=== PATIENT | male | born 1950 | race Caucasian/White ===

== ENCOUNTER 2016-07-27 15:34 | Emergency (ER) | payer MEDICARE, OTHER ==
[2016-07-27 16:30] LABS: Hematocrit 34.7 % (42.0-52.0); Hemoglobin 12.2 gm/dL (13.5-18.0); Mean Cell Volume 93.8 fl (78-100); Mean Corpuscular Hgb Conc 35.2 g/dl (32-36); Mean Platelet Volume 9.1 fl (6.0-9.5); Neutrophil # 6.1 K/mm3 (1.3-6.0); Platelet Count 284 K/mm3 (150-450); Red Cell Distribution Width 13.3 % (11.5-14.0); White Blood Count 9.5 K/mm3 (4.0-10.5)
[2016-07-27 16:40] LABS: Prothrombin Time (Patient) 14.1 Seconds (9.4-11.4)
[2016-07-27] MEDS ORDERED: NORMAL SALINE 1,000 ML IV ONE (16:40)
[2016-07-27 16:41] LABS: INR 1.36 INR (0.90-1.10); Partial Thrombolplastin Time 30.3 Seconds (24-32)
[2016-07-27 16:42] LABS: Albumin * 3.8 gm/dl (3.4-5.0); Anion Gap 14.4 mmol/L (6.8-13.8); BUN/Creatinine Ratio 21.2 (9.0-21.6); Bilirubin, Total 0.2 mg/dL (0.0-1.1); Ca. Corrected For Albumin 8.9 mg/dL (8.4-10.2); Calcium * 9.1 mg/dL (7.9-10.9); Carbon Dioxide 26.4 mmol/L (24-32.6); Potassium 3.8 mmol/L (3.4-4.6); Total Protein 7.4 gm/dL (6.2-8.2)
--- OUTSIDE RECORDS SUMMARY | 2016-07-27 17:25 | XMS REPORT | Continuity of Care Document ---
:1950 Author Organization [facility] [place] [address] Care Team Providers Name Role Phone Unavailable Primary Care Provider Unavailable Source Comments This disclosure is being made pursuant to the [employer] program and maynot contain all information available regarding this patient.[facility] Active Allergies and Adverse Reactions Not on File Current Medications Be aware that medications may not be up to date as of this document. Alwaysverify current medications with the patient. Not on file Active Problems Not on file Social History Tobacco Use Types Packs/Day Years Used Date Never Assessed Plan of Care Health Maintenance Due Date Last Done Comments Retired-Pertussis Vaccine Adult 1969 Retired-Tetanus Vaccine Adult 1969 Colonoscopy 2000 Well Adult Visit 2000 Zoster Vaccine 60+ 2010 Retired-INFLUENZA VACCINE 02/15/2015 Results from Last 3 Months Not on file
--- OUTSIDE RECORDS SUMMARY | 2016-07-27 17:26 | XMS REPORT | Continuity of Care Document ---
:1950 Author Organization [facility] ([facility]) Address [address] [place] [address] Phone [phone] Care Team Providers Name Role Phone PearlKamar aiken Primary Care Provider [phone] Source Comments This disclosure is being made pursuant to the Care Everywhere program, applicable federal and state laws, and may not contain all informaitonavailable regarding this patient.[facility] ([facility]) Active Allergies and Adverse Reactions No Known Allergies Current Medications Prescription Sig. Disp. Refills Start End Date Status Date pravastatin 10 mg Take 10 mg by mouth Active tablet every evening. furosemide 40 mg tablet Take 20 mg by mouth Active daily lisinopril 2.5 mg Take 2.5 mg by Active tablet mouth daily. carvedilol 3.125 mg Take 3.125 mg by Active tablet mouth 2 times daily with meals. warfarin 3 mg tablet Take 3 mg by mouth Active daily. spironolactone 25 mg Take 12.5 mg by Active tablet mouth daily aspirin 81 mg EC tablet Take 81 mg by mouth Active daily. TAMSULOSIN HCL (FLOMAX Take by mouth daily Active PO) DULoxetine (CYMBALTA) Take 60 mg by mouth Active 60 mg capsule daily. hydroxychloroquine 200 Take 2 Tabs by 180 Tab 3 Active mg tablet mouth daily. 4 Indications: RHEUMATOID ARTHRITIS CLOPIDOGREL 75 mg Take 75 mg by mouth 4 Active tablet daily 5 folic acid 1 mg tablet Take 1 Tab (1 mg 90 Tab 3 Active total) by mouth 5 daily methotrexate 25 mg/mL Inject 1 mL (25 mg 12 mL 1 Active injection total) 5 subcutaneously every week tuberculin syringe w/ Inject 25 Syringe 1 Active needle 1 mL 27 g x 1/2" subcutaneously 5 every week Active Problems Problem Noted Date HTN (hypertension) 11/15/2013 CAD (coronary artery disease) 11/15/2013 S/P CABG (coronary artery bypass graft) 11/15/2013 Secondary osteoarthritis 02/22/2013 Encounter for long-term (current) use of other medications 04/20/2009 Other physical therapy 2008 Pain in limb 2008 Bunion 09/20/2008 Pain in joint, ankle and foot 09/16/2008 Pain in joint, forearm 07/06/2008 Unspecified polyarthropathy or polyarthritis, site unspecified 07/01/2008 Rheumatoid arthritis(714.0) 03/03/2008 Overview: On methotrexate and hydroxychloroquine. Sulfasalazine prescribed in February 2013, discontinued for stomach upset. Immunizations Name Dates Previously Given Next Due Influenza, unspecified 04/14/2014,03/17/2013,03/31/2008 Pneumococcal, unspecified 03/03/2005 Social History Tobacco Use Types Packs/Day Years Used Date Current Every Day Smoker Cigarettes 0.25 33 Smokeless Tobacco: Never Used Comments:1/3 pack a day. Alcohol Use Drinks/Week oz/Week Comments Yes 1drink every 2 weeks. Last Filed Vital Signs Vital Sign Reading Time Taken Blood Pressure 112/76 11/19/2014 10:06 AM CDT Pulse 89 11/19/2014 10:06 AM CDT Temperature 36.7 C (98.1 F) 11/19/2014 10:06 AM CDT Respiratory Rate 16 07/20/2008 8:16 AM [employer] Height 1.702 m (5' 7") 11/19/2014 10:06 AM CDT Weight 69.854 kg (154 lb) 11/19/2014 10:06 AM CDT Body Mass Index 24.11 11/19/2014 10:06 AM CDT Oxygen Saturation 98% 07/20/2008 8:16 AM [employer] Plan of Care Health Maintenance Due Date Last Done Comments Hepatitis B Vaccine (1 of 3 - Primary 1950 Series) Tdap Vaccine 1961 Lipid Disorder Screening 1968 Td Vaccine 1968 Colonoscopy 09/29/2000 Prostate Cancer Screening 2000 Zoster Vaccine 2010 Pneumococcal Vaccine (1 of 2 - PCV13) 10/01/2015 Influenza Vaccine: Seasonal (#1) 01/16/2016 04/14/2014, 03/17/2013, 03/31/2008 HCV Screening Completed 09/11/2002 Results from Last 3 Months Not on file
[2016-07-27] MEDS ORDERED: PANTOPRAZOLE SODIUM 40 MG in NORMAL SALINE 100 ML IV ONE (17:28)
[2016-07-27 17:42] LABS: Urine Appearance Clear; Urine Bilirubin Negative (NEGATIVE); Urine Blood Negative /ul (NEGATIVE); Urine Color Yellow; Urine Ketone Negative (NEGATIVE); Urine Nitrite Negative (NEGATIVE); Urine Protein Negative (NEGATIVE); Urine Urobilinogen Normal (NORMAL); Urine pH 6.5 pH (5.0-7.0)
[2016-07-27 17:43] LABS: Urine Bacteria None Seen; Urine RBC None Seen /hpf (0-5); Urine WBC None Seen /hpf (0-5)
--- NOTE | 2016-07-27 18:04 | ERNOTE ---
GI Bleeding/Rectal Pain ER Date of Service: 07/27/16 Presenting Symptoms: dark/tarry stools Time Seen by Provider: 07/27/16 16:25 Source: patient, family Exam Limitations: no limitations Immunizations: IMMUNIZATION HX Immunizations Up to Date Yes History of Influenza Vaccine Yes Hx Pneumococcal Vaccination No Allergies/Adverse Reactions: Allergies No Known Allergies Allergy (Verified 07/27/16 15:51) Home Medications: HOME MEDICATIONS Carvedilol [Coreg] 3.125 mg PO BID 05/26/12 [Last Taken 07/28/15 06:30] Folic Acid 1 mg PO DAILY 05/26/12 [Last Taken Unknown] Lisinopril 2.5 mg PO DAILY 05/26/12 [Last Taken Unknown] Methotrexate Sodium [Methotrexate] 25 mg PO RAMSEY 05/26/12 [Last Taken 02/13/15] Pravastatin Sodium 10 mg PO HS 05/26/12 [Last Taken Unknown] Spironolactone [Aldactone] 12.5 mg PO DAILY #0 tablet 05/28/12 [Last Taken Unknown] Furosemide [Lasix] 20 mg PO DAILY 06/11/13 [Last Taken Unknown] Clopidogrel Bisulfate [Plavix] 75 mg PO DAILY 07/24/14 [Last Taken Unknown] Aspirin [Aspirin Enteric Coated] 81 mg PO DAILY 11/16/14 [Last Taken Unknown] Warfarin Sodium [Coumadin] 3 mg PO SUTUTHSA 12/08/14 [Last Taken Unknown] Fluticasone Propionate [Flonase] 1 spray NS DAILY PRN 07/25/15 [Last Taken Unknown] Warfarin Sodium [Coumadin] 1.5 mg PO MOWEFR 01/19/16 [Last Taken Unknown] Narrative: Patient presents to the ED with black/tarry stools. He relates he has had two black tarry stools today, the second one was of significant volume, No fever or abdominal pain. He had vomited blood after choking a couple of days ago but that resolved and no further vomiting of blood. His las upper GI was approx 4 years ago. No colonoscopy that he can remember. No syncope or lightheadedness. Nothing makes this better or worse. No CP or SOB. Timing: other - 2 episodes today Quality/Severity: Present: other - denies pain Nausea/Vomiting: Present: none Abdominal Pain: Present: none Rectal Bleeding: Absent: none Associated Symptoms: Reports: black stools. Denies: back pain Prior Treament: Reports: other - Vomited blood after choking a couple of days ago Review of Systems - Review of Systems Constitutional: Absent: fever ENT: Present: no symptoms reported Respiratory: Absent: shortness of breath Cardiology: Absent: chest pain Gastrointestinal/Abdominal: Present: See HPI Genitourinary: Present: no symptoms reported Musculoskeletal: Present: no symptoms reported All Other Systems: All systems neg except as marked - Patient's Past Medical History Patient History - Medical: Anxiety, Arthritis, Osteoarthritis, Rheumatoid Arthritis Patient History - Cardiac/Respiratory: CHF, Myocardial Infarction Patient History - Cancer: No Hx of Cancer Patient History - Surgical Procedures: Cardiac stent, EGD Patient History - Other: None - Family History Mother Family History - Medical: Father Family History - Medical: Brother Family History - Medical: Family History - Cardiac/Respiratory: Myocardial Infarction - Social History Living Situations: home Abuse History: No History of abuse Psych History: Hx of Anxiety Smoking Status: Current every day smoker Have you smoked in the past 12 months: Yes Alcohol Use: occasionally Drug Use: none - Immunizations Immunizations Up to Date: Yes Hx Pneumococcal Vaccination: No History of Influenza Vaccine: Yes Physical Exam - Physical Exam General Appearance: Present: alert, no apparent distress Eye Exam: Normal inspection: bilateral, PERRL: bilateral Ears, Nose, Throat: Present: normal ENT inspection Neck: Present: normal inspection Respiratory: Present: no respiratory distress, normal breath sounds, no accessory muscle use, lungs clear Cardiovascular/Chest: Present: regular rate, rhythm, normal peripheral pulses Gastrointestinal/Abdominal: Present: normal bowel sounds, nontender, nondistended, no organomegaly Rectal Exam: Present: nontender, black stool Back Exam: Present: normal range of motion Extremity Exam: Present: normal inspection, normal range of motion Neurological Exam: Present: alert, normal mood/affect Skin Exam: Absent: skin rash ED Progress - Results and Orders Patient's Lab Results:: I have reviewed the patient's lab results. - Vital Signs Patient's Vital Signs:: I have reviewed the patient's vital signs. Vital Signs: Vital Signs 07/27/16 07/27/16 15:42 17:35 Temperature 37.2 C Pulse Rate 95 89 Respiratory 16 Rate Blood Pressure 117/72 O2 Sat by Pulse 96 Oximetry - Progress/Reassessment Chief Complaint: GI Bleed Progress Note-Subjective: 07/27/16 18:00 Patient has hemoglobin 2 units down from last check. Stable. On coumadin, plavix and ASA. Given melena he needs observation and likely upper GI. D/W Dr Hanson, no one here for upper GI so should be transferred. Pt and family request [facility] in [place]. I spoke with Dr Arana ED [facility] and he accepts transfer. Pt agreeable. Departure Clinical Impression: Melena, GI bleeding, Anticoagulants causing adverse effect in therapeutic use - Departure Disposition: [facility] Referrals: Kamar Washington MD [Primary Care Provider] -
[2016-07-27 18:10] VITALS: BP 120/61
[2016-07-27] MEDS ORDERED: PANTOPRAZOLE SODIUM 40 MG/100 ML PIGGYBACK IV ONE (18:47)
== END 2016-07-27 19:31 | disposition short-term general hospital (02) ==
LOC: ER 15:34
DX: K92.1 Melena (principal); K92.2 Gastrointestinal hemorrhage, unspecified; T45.515A Adverse effect of anticoagulants, initial encounter; I50.9 Heart failure, unspecified; Z95.5 Presence of coronary angioplasty implant and graft; M06.9 Rheumatoid arthritis, unspecified; F17.210 Nicotine dependence, cigarettes, uncomplicated